=== PATIENT | female | born 1975 | race Hispanic/Latino ===

== ENCOUNTER 2017-04-29 16:21 | Emergency (ER) | payer MEDICARE, MEDICAID ==
[2017-04-29] MEDS ORDERED: HYDROcodone/Acetaminophen 5/325 mg Tablet ONE (17:44)
--- NOTE | 2017-04-29 19:49 | RAD ---
LEFT WRIST FOUR VIEWS: 04/29/17 HISTORY: Left wrist injury. FINDINGS: Scaphoid is somewhat malrotated. Scaphoid view shows the waist to be intact. On the lateral view, a t hin linear ossific density posterior to the mid carpus most likely represents an avulsion injury from the posterior aspect of the triquetral. IMPRESSION: Triquetral posterior avulsion injury. Please consider immobilization and orthopedic followup. POS: SHELLI
== END 2017-04-29 17:55 | disposition home or self-care (01) ==
LOC: ERS 16:21
DX: S62.112A Displaced fracture of triquetrum [cuneiform] bone, left wrist, initial encounter for closed fracture (principal); G80.9 Cerebral palsy, unspecified; I10 Essential (primary) hypertension; F41.9 Anxiety disorder, unspecified; F17.200 Nicotine dependence, unspecified, uncomplicated; Z79.899 Other long term (current) drug therapy; X58.XXXA Exposure to other specified factors, initial encounter

== ENCOUNTER 2019-11-17 06:13 | Emergency (ER) | payer MEDICARE, MEDICAID ==
[2019-11-17] MEDS ORDERED: Ketorolac Tromethamine 30 MG/ML VIAL ONE (06:23)
[2019-11-17] MEDS ORDERED: Ondansetron PF 4 MG/2 ML Vial ONE (06:24)
[2019-11-17 06:45] LABS: #Eosinphils 0.1 thou/uL (0.0-0.7); #Lymphocytes 2.5 thou/uL (1.20-3.40); #Monocytes 0.5 thou/uL (0.11-0.59); #Neutrophils 4.1 thou/uL (1.40-6.50); %Basophils 0.2 % (0.0-1.0); %Eosinophils 1.3 % (0.0-10.0); %Lymphocytes 34.5 % (21.0-51.0); %Monocytes 6.6 % (0.0-10.0); %Neutrophils 57.5 % (42.0-75.0); Hemoglobin 11.9 g/dL (12.0-16.0); Mean Corpuscular HGB CONC 32.4 g/dL (32.0-36.0); Mean Corpuscular Hemoglobin 26.2 pg (27.0-31.0); Mean Corpuscular Volume 80.9 fL (78.0-98.0); Mean Platelet Volume 7.9 fL (7.4-10.4); Platelet Count 217 thou/uL (130-400); RBC Distribution Width 13.2 % (11.5-14.5); Red Blood Cell (RBC) Count 4.52 mill/uL (4.20-5.40); White Blood Cell (WBC) Count 7.2 thou/uL (4.8-10.8)
[2019-11-17 07:00] LABS: ALT (SGPT) 26 U/L (8-55); AST (SGOT) 21 U/L (5-34); Albumin 3.3 g/dL (3.5-5.0); Alkaline Phosphatase 102 U/L (40-110); Anion Gap 9 mmol/L (10-20); BUN (Urea Nitrogen) 11 mg/dL (7.0-18.7); Bilirubin, Total 0.5 mg/dL (0.2-1.2); Calc. Creatinine Clearance 0 mL/min (70-130); Calcium 7.8 mg/dL (7.8-10.44); Carbon Dioxide 22 mmol/L (22-29); Chloride 109 mmol/L (98-107); Estimated GFR-MDRD Greater than 90; Globulin 2.5 g/dL (2.4-3.5); Glucose 101 mg/dL (70-105); Lipase 9 U/L (8-78); Potassium 3.2 mmol/L (3.5-5.1); Protein, Total 5.8 g/dL (6.0-8.3); Sodium 137 mmol/L (136-145)
[2019-11-17 07:17] LABS: Bilirubin Negative (Negative); Blood, Urine Trace (Negative); Clarity Turbid (Clear); Glucose, Urine (Dipstick) Normal (Negative); Ketone, Urine Negative (Negative); Leukocyte 250 Leu/uL (Negative); Nitrite Negative (Negative); Protein, Urine (Dipstick) 20 mg/dL (Neg-Trace); Specific Gravity, Urine 1.044 (1.002-1.036); Urobilinogen Normal mg/dL (Less than 2)
[2019-11-17 07:18] LABS: Bacteria/HPF 1+ HPF (None Seen)
--- NOTE | 2019-11-17 07:50 | CT ---
Ct abdomen and pelvis with contrast: COMPARISON: 08/09/2016. HISTORY: Epigastric abdominal pain. TECHNIQUE: Multiple contiguous axial images were obtained in a CT of the abdomen and pelvis with contrast. Sagi ttal and coronal reformats were performed. FINDINGS: The patient is status post cholecystectomy. The liver, kidneys, adrenal glands, spleen, and pancreas are unremarkable. No free air, free fluid, or stranding changes are seen in the abdomen or pelvis. The reproductive organs are unremarkable. The large and small bowel are unremarkable. The appendix is normal. No abdominal or pelvis lymphadenopathy are seen. Degenerative changes are seen in the spine. There is a small stable fat-containing umbilical hernia. The visualized inferior thorax was unremarkable. There is a small hiatal hernia. IMPRESSION: No evidence of acute intraabdominal/pelvic abnormality. POS: EAA
[2019-11-17] MEDS ORDERED: Iopamidol-370 76% 500 ML 1 ML ONE (13:15)
== END 2019-11-17 08:38 | disposition home or self-care (01) ==
LOC: ERS 06:13
DX: R10.13 Epigastric pain (principal); R19.7 Diarrhea, unspecified; I10 Essential (primary) hypertension; F41.9 Anxiety disorder, unspecified; Z79.899 Other long term (current) drug therapy
CPT/HCPCS: 36415; 51701; 74177; 80053; 81003; 81015; 83690; 85025; 96361; 96372; 96374; 96375; J0500; J1885; J2405; Q9967

== ENCOUNTER 2020-02-11 02:37 | Emergency (ER) | payer MEDICARE, MEDICAID ==
[2020-02-11] MEDS ORDERED: Promethazine HCl 25 MG/ML VIAL ONE (03:06)
[2020-02-11 03:09] LABS: #Basophils 0.1 thou/uL (0.0-0.2); #Eosinphils 0.2 thou/uL (0.0-0.7); #Lymphocytes 3.3 thou/uL (1.20-3.40); #Monocytes 0.7 thou/uL (0.11-0.59); #Neutrophils 6.6 thou/uL (1.40-6.50); %Basophils 0.6 % (0.0-1.0); %Eosinophils 1.8 % (0.0-10.0); %Lymphocytes 30.3 % (21.0-51.0); %Monocytes 6.4 % (0.0-10.0); %Neutrophils 60.9 % (42.0-75.0); Hemoglobin 12.2 g/dL (12.0-16.0); Mean Corpuscular HGB CONC 32.3 g/dL (32.0-36.0); Mean Corpuscular Hemoglobin 25.2 pg (27.0-31.0); Mean Corpuscular Volume 77.9 fL (78.0-98.0); Mean Platelet Volume 8.1 fL (7.4-10.4); Platelet Count 261 thou/uL (130-400); RBC Distribution Width 13.8 % (11.5-14.5); Red Blood Cell (RBC) Count 4.84 mill/uL (4.20-5.40); White Blood Cell (WBC) Count 10.8 thou/uL (4.8-10.8)
[2020-02-11 03:15] LABS: BHCG - Serum Negative (NEGATIVE); Pregs Control Background? CLEAR/WHITE (CLR/WHITE); Pregs Control Bar Appear? YES (CONTROL BAR)
[2020-02-11 03:30] LABS: ALT (SGPT) 16 U/L (8-55); AST (SGOT) 12 U/L (5-34); Albumin 3.6 g/dL (3.5-5.0); Alkaline Phosphatase 96 U/L (40-110); Anion Gap 14 mmol/L (10-20); BUN (Urea Nitrogen) 13 mg/dL (7.0-18.7); Bilirubin, Total 0.3 mg/dL (0.2-1.2); Calc. Creatinine Clearance 0 mL/min (70-130); Calcium 8.3 mg/dL (7.8-10.44); Carbon Dioxide 21 mmol/L (22-29); Chloride 105 mmol/L (98-107); Globulin 3.3 g/dL (2.4-3.5); Glucose 109 mg/dL (70-105); Lipase 21 U/L (8-78); Potassium 3.6 mmol/L (3.5-5.1); Protein, Total 6.9 g/dL (6.0-8.3); Sodium 136 mmol/L (136-145)
[2020-02-11 04:49] LABS: Bilirubin Negative (Negative); Blood, Urine Negative (Negative); Clarity Clear (Clear); Glucose, Urine (Dipstick) Normal (Negative); Ketone, Urine Negative (Negative); Leukocyte Negative Leu/uL (Negative); Nitrite Negative (Negative); Protein, Urine (Dipstick) Negative (Neg-Trace); Specific Gravity, Urine 1.034 (1.002-1.036); Urobilinogen Normal mg/dL (Less than 2)
[2020-02-11] MEDS ORDERED: Acetaminophen 500 MG TAB ONE (05:23)
--- NOTE | 2020-02-11 08:48 | CT ---
PRELIMINARY REPORT/[facility]/EMERGENCY AFTER HOURS PROCEDURE EXAM: CT Abdomen and Pelvis with Intravenous Contrast CLINICAL HISTORY: ABD PAIN AND VOMITING ONSET TONIGHT 8 MG ODST ZOFRAN, HELPED WITH NAUSEA GREEN BILE. HAD THIS BEFORE, TOLD WAS GERD TECHNIQUE: Axial computed tomography images of the abdomen and pelvis with intravenous contrast. CONTRAST: With; ISOVUE 370,100mL COMPARISON: N 11/17/2019 one provided. FINDINGS: LUNG BASES: No basilar airspace consolidation or pleural effusion. LIVER: Unremarkable. GALLBLADDER AND BILE DUCTS: The gallbladder is absent. No dilatation of the biliary ductal system. PANCREAS: Unremarkable. SPLEEN: Unremarkable. ADRENAL GLANDS: Unremarkable. KIDNEYS, URETERS, AND BLADDER: Unremarkable. No hydronephrosis or nephrolithiasis. No ureteral or bladder calculi. STOMACH AND BOWEL: No obstruction. No wall thickening. No CT evidence of colitis or acute diverticulitis. There is a sm all hiatal hernia. APPENDIX: No CT evidence for appendicitis. The appendix is normal. PERITONEUM: No free fluid. No free air. LYMPH NODES: No lymphadenopathy. REPRODUCTIVE: Unremarkable as visualized. VASCULATURE: No aortic aneurysm. BONES: No fracture or suspicious osseous abnormality. ABDOMINAL WALL AND SOFT TISSUES: Unremarkable. IMPRESSION: No acute intra-abdominal or pelvic abnormality. ELECTRONICALLY SIGNED BY: Lesley Parkinson DO Feb 11, 2020 4:31:24 AM DENTAL FINANCIAL COORDINATOR This report is intended for review by the ordering physician only, in accordance of law. If you recei ve this report in error, please call [facility] at [phone]. FINAL REPORT EMERGENCY AFTER HOURS CT ABDOMEN AND PELVIS: I agree with the preliminary report provided by [facility]. No definite acute CT abnormality to explain the patient's abdominal pain with vomiting Transcribed Date/Time: 02/11/2020 8:56 AM
[2020-02-11] MEDS ORDERED: Iopamidol 370 76% 100 ML VIAL ONE (09:31)
== END 2020-02-11 06:01 | disposition home or self-care (01) ==
LOC: ERS 02:37
DX: R10.9 Unspecified abdominal pain (principal); R11.2 Nausea with vomiting, unspecified; Z79.899 Other long term (current) drug therapy; K21.9 Gastro-esophageal reflux disease without esophagitis; I10 Essential (primary) hypertension; F17.200 Nicotine dependence, unspecified, uncomplicated
CPT/HCPCS: 51701; 74177; 80053; 81003; 83690; 84703; 85025; 93005; 96365; J2550; Q9967

== ENCOUNTER 2020-05-07 13:47 | Emergency (ER) | payer MEDICARE, MEDICAID ==
[2020-05-07] MEDS ORDERED: Diazepam 5 MG TAB ONE (14:08)
[2020-05-07] MEDS ORDERED: Ketorolac Tromethamine 30 MG/ML VIAL ONE (14:08)
[2020-05-07 14:22] LABS: #Eosinphils 0.1 thou/uL (0.0-0.7); #Lymphocytes 1.9 thou/uL (1.20-3.40); #Monocytes 0.4 thou/uL (0.11-0.59); #Neutrophils 3.8 thou/uL (1.40-6.50); %Basophils 0.1 % (0.0-1.0); %Eosinophils 1.7 % (0.0-10.0); %Monocytes 7.1 % (0.0-10.0); %Neutrophils 61.1 % (42.0-75.0); Hemoglobin 11.8 g/dL (12.0-16.0); Mean Corpuscular HGB CONC 31.9 g/dL (32.0-36.0); Mean Corpuscular Hemoglobin 25.1 pg (27.0-31.0); Mean Corpuscular Volume 78.6 fL (78.0-98.0); Mean Platelet Volume 8.1 fL (7.4-10.4); Platelet Count 257 thou/uL (130-400); RBC Distribution Width 13.8 % (11.5-14.5); White Blood Cell (WBC) Count 6.2 thou/uL (4.8-10.8)
[2020-05-07 14:43] LABS: ALT (SGPT) 17 U/L (8-55); AST (SGOT) 14 U/L (5-34); Albumin 3.6 g/dL (3.5-5.0); Alkaline Phosphatase 94 U/L (40-110); Anion Gap 12 mmol/L (10-20); BUN (Urea Nitrogen) 10 mg/dL (7.0-18.7); Bilirubin, Total 0.4 mg/dL (0.2-1.2); Calc. Creatinine Clearance 0 mL/min (70-130); Calcium 8.2 mg/dL (7.8-10.44); Carbon Dioxide 21 mmol/L (22-29); Chloride 107 mmol/L (98-107); Globulin 3.2 g/dL (2.4-3.5); Glucose 99 mg/dL (70-105); Potassium 3.7 mmol/L (3.5-5.1); Protein, Total 6.8 g/dL (6.0-8.3); Sodium 136 mmol/L (136-145)
[2020-05-07 15:17] LABS: Bilirubin Negative (Negative); Blood, Urine Negative (Negative); Clarity Clear (Clear); Glucose, Urine (Dipstick) Normal (Negative); Ketone, Urine Negative (Negative); Leukocyte Negative Leu/uL (Negative); Nitrite Negative (Negative); Protein, Urine (Dipstick) Negative (Neg-Trace); Specific Gravity, Urine 1.013 (1.002-1.036); Urobilinogen Normal mg/dL (Less than 2)
[2020-05-07 15:20] LABS: Pregnancy Test - Urine (BHCG) Negative (Negative); Pregu Control Background? CLEAR/WHITE (CLR/WHITE); Pregu Control Bar Appear? YES (CONTROL BAR); Specific Gravity 1.013 (1.002-1.036)
== END 2020-05-07 17:01 | disposition home or self-care (01) ==
LOC: ERS 13:47
DX: M54.5 Low back pain (principal); I10 Essential (primary) hypertension; K21.9 Gastro-esophageal reflux disease without esophagitis; F17.200 Nicotine dependence, unspecified, uncomplicated; Z79.899 Other long term (current) drug therapy
CPT/HCPCS: 36415; 80053; 81003; 81025; 85025; 96374; J1885

== ENCOUNTER 2020-08-13 00:11 | Inpatient (IN) | payer MEDICARE, MEDICAID ==
[2020-08-13 00:41] LABS: #Eosinphils 0.1 thou/uL (0.0-0.7); #Lymphocytes 1.5 thou/uL (1.20-3.40); #Monocytes 0.5 thou/uL (0.11-0.59); #Neutrophils 2.1 thou/uL (1.40-6.50); %Basophils 0.1 % (0.0-1.0); %Monocytes 12.7 % (0.0-10.0); %Neutrophils 48.2 % (42.0-75.0); Hemoglobin 12.5 g/dL (12.0-16.0); Mean Corpuscular HGB CONC 32.9 g/dL (32.0-36.0); Mean Corpuscular Hemoglobin 25.2 pg (27.0-31.0); Mean Corpuscular Volume 76.7 fL (78.0-98.0); Mean Platelet Volume 9.1 fL (7.4-10.4); Platelet Count 171 thou/uL (130-400); RBC Distribution Width 14.2 % (11.5-14.5); Red Blood Cell (RBC) Count 4.96 mill/uL (4.20-5.40); White Blood Cell (WBC) Count 4.3 thou/uL (4.8-10.8)
[2020-08-13 01:04] LABS: ALT (SGPT) 46 U/L (8-55); AST (SGOT) 33 U/L (5-34); Albumin 3.8 g/dL (3.5-5.0); Alkaline Phosphatase 117 U/L (40-110); Anion Gap 13 mmol/L (10-20); BUN (Urea Nitrogen) 10 mg/dL (7.0-18.7); Bilirubin, Total 0.2 mg/dL (0.2-1.2); Calc. Creatinine Clearance 0 mL/min (70-130); Calcium 8.3 mg/dL (7.8-10.44); Carbon Dioxide 20 mmol/L (22-29); Chloride 105 mmol/L (98-107); Globulin 3.1 g/dL (2.4-3.5); Glucose 114 mg/dL (70-105); Potassium 3.8 mmol/L (3.5-5.1); Protein, Total 6.9 g/dL (6.0-8.3); Sodium 134 mmol/L (136-145)
[2020-08-13] MEDS ORDERED: Ketorolac Tromethamine 30 MG/ML VIAL ONE (01:58)
[2020-08-13] MEDS ORDERED: Sodium Chloride 0.9% 100 ML ONE (04:05)
[2020-08-13] MEDS ORDERED: cefTRIAXone\\ROCEPHIN 1 GM VIAL ONE (04:05)
[2020-08-13] MEDS ORDERED: Azithromycin 500 MG VIAL ONE (05:00)
[2020-08-13 06:21] LABS: SARS-CoV-2 NAA Rapid Test Not Detected (NotDetected)
[2020-08-13 06:40] VITALS: BMI 47.9
[2020-08-13] MEDS ORDERED: Acetaminophen 325 MG TAB PO PRN (07:49)
[2020-08-13] MEDS ORDERED: Ondansetron ODT 4 MG TAB PO PRN (07:49)
[2020-08-13] MEDS: Guaifenesin DM 100-10/5 ML UDCUP PO PRN ×3 (08:24→20:10)
[2020-08-13] MEDS: Benzonatate 100 MG CAP PO PRN ×3 (08:24→20:09)
[2020-08-13] MEDS: Enoxaparin Sodium 40 MG/0.4 ML SYRINGE SC SCH (08:24)
[2020-08-13] MEDS ORDERED: LISINOPRIL 30 MG PO SCH (09:00)
[2020-08-13] MEDS: Oxybutynin 5 MG TAB PO SCH (09:14)
[2020-08-13] MEDS: Lisinopril 10 MG TAB PO SCH (09:15)
[2020-08-13] MEDS: guaiFENesin ER 600 MG TAB PO SCH ×2 (09:15→20:09)
[2020-08-13] MEDS: FLUoxetine HCl 20 MG CAP PO SCH (09:15)
[2020-08-13] MEDS ORDERED: Iopamidol 370 76% 100 ML VIAL ONE (09:24)
[2020-08-13] MEDS: Ketorolac Tromethamine 10 MG TAB PO PRN (15:17)
[2020-08-13] MEDS ORDERED: Melatonin 3 MG TAB PO SCH (21:00)
[2020-08-13] MEDS ORDERED: Non-Formulary Item 1 EACH (Melatonin [Melatonin] 10 MG Tablet) PO SCH (21:00)
[2020-08-14] MEDS: Guaifenesin DM 100-10/5 ML UDCUP PO PRN (00:25)
[2020-08-14] MEDS ORDERED: cefTRIAXone\\ROCEPHIN 1 GM in Sodium Chloride 0.9% 100 ML IVPB SCH (05:00)
[2020-08-14] MEDS ORDERED: Azithromycin 500 MG in Sodium Chloride 0.9% 250 ML 250 ML IVPB SCH (06:00)
[2020-08-14 07:33] LABS: #Eosinphils 0.2 thou/uL (0.0-0.7); #Lymphocytes 1.4 thou/uL (1.20-3.40); #Monocytes 0.4 thou/uL (0.11-0.59); #Neutrophils 1.6 thou/uL (1.40-6.50); %Basophils 0.2 % (0.0-1.0); %Eosinophils 5.1 % (0.0-10.0); %Lymphocytes 39.4 % (21.0-51.0); %Monocytes 10.9 % (0.0-10.0); %Neutrophils 44.5 % (42.0-75.0); Hemoglobin 11.1 g/dL (12.0-16.0); Mean Corpuscular HGB CONC 32.6 g/dL (32.0-36.0); Mean Corpuscular Hemoglobin 25.4 pg (27.0-31.0); Mean Corpuscular Volume 77.9 fL (78.0-98.0); Mean Platelet Volume 9.3 fL (7.4-10.4); Platelet Count 160 thou/uL (130-400); RBC Distribution Width 14.1 % (11.5-14.5); Red Blood Cell (RBC) Count 4.39 mill/uL (4.20-5.40); White Blood Cell (WBC) Count 3.5 thou/uL (4.8-10.8)
[2020-08-14] MEDS: Benzonatate 100 MG CAP PO PRN (07:38)
[2020-08-14] MEDS: Lisinopril 10 MG TAB PO SCH (07:38)
[2020-08-14] MEDS: FLUoxetine HCl 20 MG CAP PO SCH (07:38)
[2020-08-14] MEDS: Enoxaparin Sodium 40 MG/0.4 ML SYRINGE SC SCH (07:39)
[2020-08-14] MEDS: guaiFENesin ER 600 MG TAB PO SCH (07:39)
[2020-08-14] MEDS: Ketorolac Tromethamine 10 MG TAB PO PRN (07:39)
[2020-08-14] MEDS: Oxybutynin 5 MG TAB PO SCH (07:39)
[2020-08-14 07:45] VITALS: BP 114/75
[2020-08-14 07:52] LABS: Anion Gap 13 mmol/L (10-20); BUN (Urea Nitrogen) 13 mg/dL (7.0-18.7); Calc. Creatinine Clearance 157 mL/min (70-130); Carbon Dioxide 17 mmol/L (22-29); Chloride 106 mmol/L (98-107); Glucose 134 mg/dL (70-105); Potassium 3.4 mmol/L (3.5-5.1); Sodium 133 mmol/L (136-145)
[2020-08-14] MEDS ORDERED: Methocarbamol 500 MG TAB PO PRN (09:25)
[2020-08-14 10:48] VITALS: TEMP 98.8
== END 2020-08-14 15:00 | disposition home or self-care (01) | DRG 194 ==
LOC: ERS 00:11 → T4-A 04:58 → OBSVTOIN 08:42
PROVIDERS: ADMIT Internal Medicine; ATTEND Nurse Practitioner Family
DX: J18.9 Pneumonia, unspecified organism (principal); F32.0 Major depressive disorder, single episode, mild; Z20.822 Contact with and (suspected) exposure to COVID-19; G80.9 Cerebral palsy, unspecified; I10 Essential (primary) hypertension; K21.9 Gastro-esophageal reflux disease without esophagitis; N32.81 Overactive bladder; F41.9 Anxiety disorder, unspecified; Z87.891 Personal history of nicotine dependence; Z88.5 Allergy status to narcotic agent; Z79.899 Other long term (current) drug therapy; Z90.49 Acquired absence of other specified parts of digestive tract
CPT/HCPCS: 36415; 71045; 71275; 80048; 80053; 83880; 84484; 85025; 85379; 87040; 87149; 93005; 96365; 96367; 96372; 96375; G0378; J0456; J0696; J1650; J1885; J3490; J7050; Q9967; U0002; U0005

== ENCOUNTER 2020-10-03 09:26 | Emergency (ER) | payer MEDICARE, MEDICAID ==
[2020-10-03] MEDS ORDERED: Iopamidol-370 76% 500 ML 1 ML ONE (09:52)
[2020-10-03 10:32] LABS: #Eosinphils 0.1 thou/uL (0.0-0.7); #Lymphocytes 1.2 thou/uL (1.20-3.40); #Monocytes 0.6 thou/uL (0.11-0.59); #Neutrophils 3.8 thou/uL (1.40-6.50); %Lymphocytes 21.1 % (21.0-51.0); %Monocytes 9.9 % (0.0-10.0); Hemoglobin 11.2 g/dL (12.0-16.0); Mean Corpuscular HGB CONC 33.3 g/dL (32.0-36.0); Mean Corpuscular Hemoglobin 25.4 pg (27.0-31.0); Mean Corpuscular Volume 76.3 fL (78.0-98.0); Mean Platelet Volume 8.3 fL (7.4-10.4); Platelet Count 230 thou/uL (130-400); RBC Distribution Width 14.2 % (11.5-14.5); Red Blood Cell (RBC) Count 4.41 mill/uL (4.20-5.40); White Blood Cell (WBC) Count 5.7 thou/uL (4.8-10.8)
[2020-10-03 10:53] LABS: ALT (SGPT) 25 U/L (8-55); AST (SGOT) 23 U/L (5-34); Albumin 3.3 g/dL (3.5-5.0); Alkaline Phosphatase 107 U/L (40-110); Anion Gap 9 mmol/L (10-20); BUN (Urea Nitrogen) 9 mg/dL (7.0-18.7); Bilirubin, Total 0.4 mg/dL (0.2-1.2); Calc. Creatinine Clearance 0 mL/min (70-130); Calcium 8.4 mg/dL (7.8-10.44); Carbon Dioxide 24 mmol/L (22-29); Chloride 108 mmol/L (98-107); Globulin 2.9 g/dL (2.4-3.5); Glucose 104 mg/dL (70-105); Potassium 3.6 mmol/L (3.5-5.1); Protein, Total 6.2 g/dL (6.0-8.3); Sodium 137 mmol/L (136-145)
[2020-10-03 16:59] LABS: SARS-CoV-2 PCR by NAA Not Detected (NotDetected)
== END 2020-10-03 13:44 | disposition home or self-care (01) ==
LOC: ERS 09:26
DX: R06.00 Dyspnea, unspecified (principal); R05 Cough; Z20.822 Contact with and (suspected) exposure to COVID-19; I10 Essential (primary) hypertension; K21.9 Gastro-esophageal reflux disease without esophagitis; G80.9 Cerebral palsy, unspecified; F17.210 Nicotine dependence, cigarettes, uncomplicated
CPT/HCPCS: 71045; 71275; 80053; 84484; 85025; 85379; 93005; 99285; U0003; U0005; 36415; Q9967

== ENCOUNTER 2021-08-06 06:34 | Emergency (ER) | payer MEDICARE, OTHER ==
[2021-08-06] MEDS ORDERED: Ketorolac Tromethamine 30 MG/ML VIAL ONE (08:14)
[2021-08-06] MEDS ORDERED: Cyclobenzaprine 10 MG TAB ONE (08:14)
[2021-08-06] MEDS ORDERED: traMADol HCl 50 MG TAB ONE (10:02)
== END 2021-08-06 13:21 | disposition home or self-care (01) ==
LOC: ERS 06:34
DX: M54.50 Low back pain, unspecified (principal); I10 Essential (primary) hypertension; K21.9 Gastro-esophageal reflux disease without esophagitis; F17.210 Nicotine dependence, cigarettes, uncomplicated; G80.9 Cerebral palsy, unspecified
CPT/HCPCS: 96372; 99283; J1885

== ENCOUNTER 2021-08-28 07:41 | Emergency (ER) | payer MEDICARE, OTHER ==
[2021-08-28] MEDS ORDERED: Diazepam 10 MG/2 ML SYRINGE ONE (08:18)
[2021-08-28] MEDS ORDERED: Ketorolac Tromethamine 30 MG/ML VIAL ONE (08:18)
== END 2021-08-28 11:45 | disposition home or self-care (01) ==
LOC: ERS 07:41
DX: M54.50 Low back pain, unspecified (principal); I10 Essential (primary) hypertension; K21.9 Gastro-esophageal reflux disease without esophagitis; F17.210 Nicotine dependence, cigarettes, uncomplicated
CPT/HCPCS: 96372; 99283; J1885; J3360

== ENCOUNTER 2021-11-07 01:35 | Emergency (ER) | payer OTHER ==
[2021-11-07] MEDS ORDERED: Mag-Al 1200 mg/1200 mg/30 ML UDCUP ONE (02:01)
[2021-11-07 02:24] LABS: Hemoglobin 10.8 g/dL (12.0-16.0); Mean Corpuscular HGB CONC 32.5 g/dL (32.0-36.0); Mean Corpuscular Hemoglobin 23.9 pg (27.0-31.0); Mean Corpuscular Volume 73.5 fL (78.0-98.0); Mean Platelet Volume 8.8 fL (7.4-10.4); Platelet Count 260 thou/uL (130-400); RBC Distribution Width 15.2 % (11.5-14.5); Red Blood Cell (RBC) Count 4.51 mill/uL (4.20-5.40); White Blood Cell (WBC) Count 9.5 thou/uL (4.8-10.8)
[2021-11-07 02:32] LABS: ALT (SGPT) 22 U/L (8-55); AST (SGOT) 22 U/L (5-34); Albumin 3.7 g/dL (3.5-5.0); Alkaline Phosphatase 114 U/L (40-110); Anion Gap 10 mmol/L (10-20); BUN (Urea Nitrogen) 11 mg/dL (7.0-18.7); Bilirubin, Total 0.3 mg/dL (0.2-1.2); Calc. Creatinine Clearance 0 mL/min (70-130); Calcium 8.5 mg/dL (7.8-10.44); Carbon Dioxide 21 mmol/L (22-29); Chloride 108 mmol/L (98-107); Estimated GFR 110; Globulin 2.8 g/dL (2.4-3.5); Glucose 121 mg/dL (70-105); Lipase 17 U/L (8-78); Potassium 3.5 mmol/L (3.5-5.1); Protein, Total 6.5 g/dL (6.0-8.3); Sodium 135 mmol/L (136-145)
[2021-11-07 02:45] LABS: #Eosinphils 0.2 thou/uL (0.0-0.7); #Lymphocytes 2.8 thou/uL (1.20-3.40); #Monocytes 0.7 thou/uL (0.11-0.59); #Neutrophils 5.9 thou/uL (1.40-6.50); %Basophils 0.2 % (0.0-1.0); %Eosinophils 1.7 % (0.0-10.0); %Lymphocytes 29.2 % (21.0-51.0); %Monocytes 7.5 % (0.0-10.0); %Neutrophils 61.4 % (42.0-75.0); Anisocytosis SLIGHT = 6-15 cells (100X) (0-5/hpf); Elliptocytes SLIGHT = 2-5 cells (100X) (0-1/hpf); MDiff Complete? YES
== END 2021-11-07 06:48 | disposition home or self-care (01) ==
LOC: ERS 01:35
DX: R07.2 Precordial pain (principal); I10 Essential (primary) hypertension; F17.210 Nicotine dependence, cigarettes, uncomplicated
CPT/HCPCS: 36415; 71045; 80053; 83690; 84484; 85025; 93005

== ENCOUNTER 2022-01-02 17:40 | Emergency (ER) | payer OTHER ==
[2022-01-02] MEDS ORDERED: Acetaminophen 500 MG TAB ONE (18:49)
[2022-01-02] MEDS ORDERED: Diazepam 5 MG TAB ONE (18:49)
[2022-01-02] MEDS ORDERED: Ketorolac Tromethamine 30 MG/ML VIAL ONE (18:49)
== END 2022-01-02 21:42 | disposition home or self-care (01) ==
LOC: ERS 17:40
DX: M62.830 Muscle spasm of back (principal); K21.9 Gastro-esophageal reflux disease without esophagitis; I10 Essential (primary) hypertension; F17.210 Nicotine dependence, cigarettes, uncomplicated
CPT/HCPCS: 71045; 72040; 96372; J1885

== ENCOUNTER 2024-03-11 15:29 | Inpatient (IN) | payer OTHER ==
[2024-03-11 15:58] LABS: Actual Bicarbonate (HCO3v) 23.7 mEq/L (22-28); Analyzer IN Cardio ER; Chloride (VBG) 103 mmol/L (98-106); Hematocrit-VBG 33 % (36.0-47.0); Hemoglobin (Hb) 11.1 g/dL (11.7-16.0); Potassium (VBG) 4.48 mmol/L (3.70-5.30); Sodium 137 mmol/L (133-146); pH (venous) 7.449 (7.32-7.43)
[2024-03-11] MEDS ORDERED: Dicyclomine 20 MG TAB ONE (16:02)
[2024-03-11] MEDS ORDERED: Famotidine/PF 20 mg/2ml Vial ONE (16:02)
[2024-03-11] MEDS ORDERED: Ondansetron PF 4 MG/2 ML Vial ONE ×2 (16:02→18:20)
[2024-03-11 16:03] LABS: #Basophils Less than 0.03 10x3/uL (0.0-0.2); %Basophils 0.1 % (0.0-1.0); %Eosinophils 1.1 % (0.0-10.0); %Lymphocytes 10.8 % (21.0-51.0); %Neutrophils 83.8 % (42.0-75.0); Hematocrit 33.3 % (36.0-47.0); Hemoglobin 9.7 g/dL (12.0-16.0); Mean Corpuscular HGB CONC 29.1 g/dL (32.0-36.0); Mean Corpuscular Hemoglobin 19.8 pg (27.0-31.0); Mean Corpuscular Volume 67.8 fL (78.0-98.0); Mean Platelet Volume 9.8 fL (7.4-10.4); Platelet Count 333 10x3/uL (130-400); RBC Distribution Width 17.4 % (11.5-14.5); Red Blood Cell (RBC) Count 4.91 mill/uL (4.20-5.40)
[2024-03-11 16:25] LABS: ALT (SGPT) 19 U/L (Less than 34); AST (SGOT) 50 U/L (11-34); Albumin 3.5 g/dL (3.1-4.5); Alkaline Phosphatase 102 U/L (40-110); Anion Gap 14 mmol/L (10-20); BUN (Urea Nitrogen) 10 mg/dL (7.0-18.7); Bilirubin, Total 0.4 mg/dL (0.3-1.2); Calc. Creatinine Clearance 0 mL/min (70-130); Calcium 8.5 mg/dL (7.8-10.44); Carbon Dioxide 21 mmol/L (22-29); Chloride 105 mmol/L (98-107); Estimated GFR 112; Globulin 4.6 g/dL (2.4-3.5); Glucose 102 mg/dL (70-105); Magnesium 2.2 mg/dL (1.6-2.6); Potassium 4.9 mmol/L (3.5-5.1); Protein, Total 8.1 g/dL (6.0-8.3); Sodium 135 mmol/L (136-145)
[2024-03-11 16:29] LABS: Anisocytosis SLIGHT = 6-15 cells HPF (0-5); Elliptocytes SLIGHT = 2-5 cells HPF (0-1); Microcytosis SLIGHT = 6-15 cells HPF (0-5); Platelet Adequacy Comment Platelets Normal; Polychromasia SLIGHT = 2-3 cells HPF (0-2)
[2024-03-11 17:08] LABS: Bacteria/HPF None Seen HPF (None Seen); Bilirubin Negative (Negative); Blood, Urine Negative (Negative); CAUTI Indications for Culture Pelvic or flank pain; Clarity Clear (Clear); Glucose, Urine (Dipstick) Normal (Negative); Ketone, Urine Negative (Negative); Leukocyte Negative Leu/uL (Negative); Nitrite Negative (Negative); Protein, Urine (Dipstick) 20 mg/dL (Neg-Trace); RBC/HPF 0-3 HPF (0-3); Specific Gravity, Urine 1.026 (1.002-1.036); Squamous Epithelial 0-3 HPF (0-3); Urobilinogen Normal mg/dL (Less than 2); WBC/HPF 0-3 HPF (0-3)
[2024-03-11 17:09] LABS: Urine Culture Reflex No No
[2024-03-11] MEDS ORDERED: Promethazine HCl 25 MG/ML VIAL ONE (17:16)
[2024-03-11] MEDS ORDERED: Cyclobenzaprine 10 MG TAB ONE (18:20)
[2024-03-11] MEDS ORDERED: Ondansetron PF 4 MG/2 ML Vial IVP PRN (21:36)
[2024-03-11 22:36] VITALS: BMI 48.8
[2024-03-11] MEDS: Baclofen 10 MG TAB PO SCH (23:34)
[2024-03-11] MEDS: Lactated Ringer's 1,000 ML IV SCH (23:34)
[2024-03-12 01:21] LABS: Chloride 112 mmol/L (98-107); Sodium 135 mmol/L (136-145)
[2024-03-12 01:51] LABS: Carbon Dioxide 13 mmol/L (22-29)
[2024-03-12 01:59] LABS: Anion Gap 14 mmol/L (10-20)
[2024-03-12] MEDS: Folic Acid 1 MG TAB PO SCH (03:58)
[2024-03-12] MEDS: Thiamine HCl 200 MG/2 ML VIAL SLOW IVP SCH (03:58)
[2024-03-12] MEDS: Dextrose 5%-Lactated Ringers 1,000 ML IV SCH (04:11)
[2024-03-12] MEDS: Dicyclomine 20 MG TAB PO PRN (04:23)
[2024-03-12 05:46] LABS: #Basophils Less than 0.03 10x3/uL (0.0-0.2); %Basophils 0.2 % (0.0-1.0); %Eosinophils 0.9 % (0.0-10.0); %Lymphocytes 24.7 % (21.0-51.0); %Monocytes 7.9 % (0.0-10.0); %Neutrophils 66.1 % (42.0-75.0); Hematocrit 27.9 % (36.0-47.0); Hemoglobin 8.2 g/dL (12.0-16.0); Mean Corpuscular HGB CONC 29.4 g/dL (32.0-36.0); Mean Corpuscular Volume 68.2 fL (78.0-98.0); Mean Platelet Volume 9.4 fL (7.4-10.4); Platelet Count 259 10x3/uL (130-400); RBC Distribution Width 17.3 % (11.5-14.5); Red Blood Cell (RBC) Count 4.09 mill/uL (4.20-5.40)
[2024-03-12 06:13] LABS: Hypochromia SLIGHT = 6-15 cells HPF (0-5); Microcytosis SLIGHT = 6-15 cells HPF (0-5); Platelet Adequacy Comment Platelets Normal; Polychromasia SLIGHT = 2-3 cells HPF (0-2)
[2024-03-12] MEDS: Acetaminophen 325 MG TAB PO PRN (06:17)
[2024-03-12 06:58] LABS: Lactic Acid 1.43 mmol/L (0.50-2.20)
[2024-03-12 07:21] LABS: Anion Gap 7 mmol/L (10-20); BUN (Urea Nitrogen) 6 mg/dL (7.0-18.7); Calc. Creatinine Clearance 175 mL/min (70-130); Calcium 7.8 mg/dL (7.8-10.44); Carbon Dioxide 21 mmol/L (22-29); Chloride 109 mmol/L (98-107); Estimated GFR 114; Glucose 112 mg/dL (70-105); Iron 26 ug/dL (50-170); Iron Binding Capacity, Total 338 mcg/dL (265-497); Potassium 3.4 mmol/L (3.5-5.1); Sodium 134 mmol/L (136-145)
[2024-03-12 07:25] LABS: Campy jejuni + coli by PCR Negative (Negative); STEC Shiga Toxin 1+2 Negative (Negative); Salmonella spp. by PCR Negative (Negative); Shigella spp + EIEC by PCR Negative (Negative)
[2024-03-12] MEDS ORDERED: Pantoprazole 40 MG GRANULES PACKET PO SCH (09:00)
[2024-03-12] MEDS ORDERED: Baclofen 10 MG TAB PO PRN (09:00)
[2024-03-12] MEDS ORDERED: Pantoprazole 40 MG DR.TAB PO SCH (09:00)
[2024-03-12] MEDS: Oxybutynin 5 MG TAB PO SCH (10:24)
[2024-03-12] MEDS: Loratadine 10 MG TAB PO SCH (10:24)
[2024-03-12] MEDS: Pantoprazole 40 MG GRANULES PACKET PO SCH (10:24)
[2024-03-12] MEDS: FLUoxetine HCl 20 MG CAP PO SCH (10:24)
[2024-03-12] MEDS: Heparin 5,000 UNITS/ML VIAL SC SCH (10:24)
[2024-03-12] MEDS: Lisinopril 10 MG TAB PO SCH (10:24)
[2024-03-12] MEDS: Sodium Chloride 0.9% 1,000 ML IV SCH (15:35)
[2024-03-12] MEDS: LevoFLOXacin 500 mg/D5W 500 MG in Premix 1 BAG IVPB SCH (18:34)
[2024-03-12] MEDS: Amitriptyline HCl 10 MG TAB PO SCH (20:09)
[2024-03-13 06:54] LABS: Hematocrit 29.7 % (36.0-47.0); Hemoglobin 8.6 g/dL (12.0-16.0); Mean Corpuscular Hemoglobin 19.8 pg (27.0-31.0); Mean Corpuscular Volume 68.3 fL (78.0-98.0); Mean Platelet Volume 9.7 fL (7.4-10.4); Platelet Count 259 10x3/uL (130-400); RBC Distribution Width 17.6 % (11.5-14.5); Red Blood Cell (RBC) Count 4.35 mill/uL (4.20-5.40)
[2024-03-13 07:00] LABS: Anion Gap 9 mmol/L (10-20); BUN (Urea Nitrogen) 5 mg/dL (7.0-18.7); Calc. Creatinine Clearance 179 mL/min (70-130); Calcium 7.7 mg/dL (7.8-10.44); Carbon Dioxide 22 mmol/L (22-29); Chloride 109 mmol/L (98-107); Estimated GFR 114; Glucose 92 mg/dL (70-105); Potassium 3.1 mmol/L (3.5-5.1); Sodium 137 mmol/L (136-145)
[2024-03-13 07:29] LABS: Anisocytosis SLIGHT = 6-15 cells HPF (0-5); Band 1 % (5-11); Elliptocytes SLIGHT = 2-5 cells HPF (0-1); Eosinophils 3 % (0-10); Hypochromia SLIGHT = 6-15 cells HPF (0-5); Lymphocytes 42 % (21-51); Monocytes 6 % (0-10); Neutrophil 48 % (42-75); Platelet Adequacy Comment Platelets Normal; Polychromasia SLIGHT = 2-3 cells HPF (0-2); Smudge Cells 15.2 %; Stomatocytes SLIGHT = 2-5 cells HPF (0-1)
[2024-03-13] MEDS ORDERED: Electrolyte Replacement Protocol FS PRN (08:45)
[2024-03-13] MEDS ORDERED: Iopamidol-370 76% 500 ML MDV (1 ML CHARGE) ONE (09:24)
[2024-03-13] MEDS: Magnesium 2 GM/50 ML(in water) 2 GM in Premix 1 BAG IVPB SCH (10:58)
[2024-03-13] MEDS: Potassium Chloride 20 MEQ TAB PO SCH (10:58)
[2024-03-13 11:09] LABS: Magnesium 1.9 mg/dL (1.6-2.6)
[2024-03-13] MEDS: Electrolyte Replacement Protocol 1 EACH FS ONE (13:31)
[2024-03-13] MEDS: Sodium Ferric Gluconate 250 MG in Sodium Chloride 0.9% 250 ML 250 ML IVPB SCH (13:59)
[2024-03-13] MEDS: Dicyclomine 10 MG CAP PO SCH (14:00)
[2024-03-13 14:42] LABS: #Basophils Less than 0.03 10x3/uL (0.0-0.2); %Basophils 0.2 % (0.0-1.0); %Eosinophils 2.8 % (0.0-10.0); %Lymphocytes 30.2 % (21.0-51.0); %Neutrophils 58.6 % (42.0-75.0); Hemoglobin 8.9 g/dL (12.0-16.0); Mean Corpuscular HGB CONC 29.7 g/dL (32.0-36.0); Mean Corpuscular Hemoglobin 19.9 pg (27.0-31.0); Mean Platelet Volume 9.3 fL (7.4-10.4); Platelet Count 256 10x3/uL (130-400); RBC Distribution Width 17.6 % (11.5-14.5); Red Blood Cell (RBC) Count 4.48 mill/uL (4.20-5.40)
[2024-03-13 14:52] LABS: ALT (SGPT) 20 U/L (Less than 34); AST (SGOT) 23 U/L (11-34); Albumin 2.8 g/dL (3.1-4.5); Alkaline Phosphatase 81 U/L (40-110); Anion Gap 9 mmol/L (10-20); BUN (Urea Nitrogen) 4 mg/dL (7.0-18.7); Bilirubin, Total 0.3 mg/dL (0.3-1.2); Calc. Creatinine Clearance 179 mL/min (70-130); Calcium 7.8 mg/dL (7.8-10.44); Carbon Dioxide 23 mmol/L (22-29); Chloride 109 mmol/L (98-107); Estimated GFR 114; Globulin 3.5 g/dL (2.4-3.5); Glucose 98 mg/dL (70-105); Lipase 11 U/L (8-78); Potassium 3.7 mmol/L (3.5-5.1); Protein, Total 6.3 g/dL (6.0-8.3); Sodium 137 mmol/L (136-145)
[2024-03-13] MEDS: Lactated Ringer's 1,000 ML IV SCH (17:00)
[2024-03-13] MEDS: LevoFLOXacin 750 mg/D5W 750 MG in Premix 1 BAG IVPB SCH (20:46)
[2024-03-13] MEDS: Ondansetron ODT 4 MG TAB PO PRN (22:04)
[2024-03-14 05:53] LABS: Anion Gap 11 mmol/L (10-20); BUN (Urea Nitrogen) Less than 4 mg/dL (7.0-18.7); Calc. Creatinine Clearance 164 mL/min (70-130); Calcium 8.3 mg/dL (7.8-10.44); Carbon Dioxide 23 mmol/L (22-29); Chloride 108 mmol/L (98-107); Estimated GFR 112; Glucose 81 mg/dL (70-105); Potassium 3.6 mmol/L (3.5-5.1); Sodium 138 mmol/L (136-145)
[2024-03-14] MEDS: Pantoprazole 40 MG VIAL IVP SCH (09:36)
[2024-03-14 19:46] VITALS: BP 139/76; TEMP 97.6
== END 2024-03-14 20:09 | disposition home or self-care (01) | DRG 392 ==
LOC: ERS 15:29 → MSONC 20:47 → OBSVTOIN 03-13 08:16
PROVIDERS: ADMIT Student in an Organized Health Care Education/Training Program; ATTEND Internal Medicine
DX: A08.4 Viral intestinal infection, unspecified (principal); E87.1 Hypo-osmolality and hyponatremia; I10 Essential (primary) hypertension; G80.9 Cerebral palsy, unspecified; F32.A Depression, unspecified; D50.9 Iron deficiency anemia, unspecified; F17.210 Nicotine dependence, cigarettes, uncomplicated; F41.9 Anxiety disorder, unspecified; E87.6 Hypokalemia; E83.42 Hypomagnesemia; K21.9 Gastro-esophageal reflux disease without esophagitis; Z98.890 Other specified postprocedural states; Z99.3 Dependence on wheelchair; Z90.49 Acquired absence of other specified parts of digestive tract
CPT/HCPCS: 36415; 74177; 80048; 80053; 81001; 82271; 82274; 82728; 82805; 83540; 83550; 83605; 83630; 83690; 83735; 84145; 85025; 87324; 87428; 87449; 87505; 87507; 93005; 96372; 96375; G0378; J1644; J1956; J2405; J2470; J2550; J2916; J3411; J3475; J3490; J7030; J7050; J7120; Q0162; Q9967

== ENCOUNTER 2024-12-01 01:20 | Emergency (ER) | payer OTHER ==
[2024-12-01 11:10] LABS: #Basophils 0.02 10x3/uL (0.0-0.2); #Eosinophils 0.13 10x3/uL (0.0-0.7); #Monocytes 0.55 10x3/uL (0.11-0.59); #Neutrophils 5.30 10x3/uL (1.40-6.50); %Basophils 0.2 % (0.0-1.0); %Eosinophils 1.6 % (0.0-10.0); %Lymphocytes 25.3 % (21.0-51.0); %Monocytes 6.8 % (0.0-10.0); %Neutrophils 65.9 % (42.0-75.0); Hematocrit 36.1 % (36.0-47.0); Hemoglobin 11.1 g/dL (12.0-16.0); Mean Corpuscular Hemoglobin 22.0 pg (27.0-31.0); Mean Corpuscular Volume 71.6 fL (78.0-98.0); Platelet Count 296 10x3/uL (130-400); Red Blood Cell (RBC) Count 5.04 mill/uL (4.20-5.40); White Blood Cell (WBC) Count 8.06 10x3/uL (4.8-10.8)
[2024-12-01] MEDS ORDERED: Iopamidol-370 76% 500 ML MDV (1 ML CHARGE) ONE (11:57)
[2024-12-01 13:17] LABS: Anion Gap 11 mmol/L (10-20); BUN (Urea Nitrogen) 14 mg/dL (7.0-18.7); Calc. Creatinine Clearance 0 mL/min (70-130); Calcium 8.9 mg/dL (7.6-10.4); Carbon Dioxide 26 mmol/L (22-29); Chloride 110 mmol/L (98-107); Glucose 99 mg/dL (70-105); Potassium 3.5 mmol/L (3.5-5.1); Sodium 143 mmol/L (136-145)
[2024-12-01 13:18] LABS: ALT (SGPT) 19 U/L (Less than 34); AST (SGOT) 17 U/L (11-34); Albumin 3.7 g/dL (3.1-4.5); Alkaline Phosphatase 116 U/L (40-110); Bilirubin, Total 0.2 mg/dL (0.3-1.2); Globulin 3.6 g/dL (2.4-3.5); Lipase 27 U/L (8-78)
== END 2024-12-01 07:14 | disposition home or self-care (01) ==
LOC: ERS 01:20
DX: R10.9 Unspecified abdominal pain (principal); I10 Essential (primary) hypertension; F17.210 Nicotine dependence, cigarettes, uncomplicated
CPT/HCPCS: 74177; 80053; 83605; 83690; 85025; 99284; Q9967

== ENCOUNTER 2025-01-20 16:04 | Inpatient (IN) | payer OTHER, MEDICAID ==
[~2025-01-20 16:04] MED LIST: Iopamidol-370 76% 500 ML MDV (1 ML CHARGE) ONE
[2025-01-20] MEDS ORDERED: Lidocaine 1% PF 5 ML VIAL ONE (16:34)
[2025-01-20] MEDS ORDERED: cefTRIAXone (ROCEPHIN) 1 GM VIAL ONE (16:35)
[2025-01-20 18:24] LABS: #Basophils 0.04 10x3/uL (0.0-0.2); #Eosinophils Less than 0.03 10x3/uL (0.0-0.7); #Monocytes 1.01 10x3/uL (0.11-0.59); #Neutrophils 10.49 10x3/uL (1.40-6.50); %Basophils 0.3 % (0.0-1.0); %Eosinophils 0.1 % (0.0-10.0); %Lymphocytes 8.1 % (21.0-51.0); %Monocytes 8.0 % (0.0-10.0); %Neutrophils 83.3 % (42.0-75.0); Hematocrit 36.5 % (36.0-47.0); Hemoglobin 10.9 g/dL (12.0-16.0); Mean Corpuscular Hemoglobin 21.3 pg (27.0-31.0); Mean Corpuscular Volume 71.3 fL (78.0-98.0); Platelet Count 270 10x3/uL (130-400); Red Blood Cell (RBC) Count 5.12 mill/uL (4.20-5.40); White Blood Cell (WBC) Count 12.60 10x3/uL (4.8-10.8)
[2025-01-20 18:30] LABS: ALT (SGPT) 26 U/L (Less than 34); AST (SGOT) 29 U/L (11-34); Albumin 3.6 g/dL (3.1-4.5); Alkaline Phosphatase 121 U/L (40-110); Anion Gap 14 mmol/L (10-20); BUN (Urea Nitrogen) 6 mg/dL (7.0-18.7); Bilirubin, Total 0.7 mg/dL (0.3-1.2); Calc. Creatinine Clearance 0 mL/min (70-130); Calcium 8.8 mg/dL (7.8-10.44); Carbon Dioxide 21 mmol/L (22-29); Chloride 103 mmol/L (98-107); Globulin 3.9 g/dL (2.4-3.5); Glucose 103 mg/dL (70-105); Potassium 3.7 mmol/L (3.5-5.1); Sodium 134 mmol/L (136-145)
[2025-01-20] MEDS ORDERED: Vancomycin 1 GM/200 ML (FROZEN) BAG ONE (20:27)
[2025-01-20] MEDS ORDERED: Acetaminophen 325 MG TAB PO PRN (20:34)
[2025-01-20] MEDS ORDERED: HYDROmorphone 0.5 MG/0.5 ML SYRINGE ONE ×2 (20:37→20:40)
[2025-01-20] MEDS: Ondansetron PF 4 MG/2 ML Vial IVP PRN (22:48)
[2025-01-20] MEDS: Melatonin 3 MG TAB PO PRN (23:22)
[2025-01-20] MEDS: Ketorolac Tromethamine 30 MG (1 mL) VIAL IVP PRN (23:24)
[2025-01-21 00:57] VITALS: BMI 48.4
[2025-01-21 05:23] LABS: #Basophils Less than 0.03 10x3/uL (0.0-0.2); #Eosinophils 0.03 10x3/uL (0.0-0.7); #Monocytes 1.13 10x3/uL (0.11-0.59); #Neutrophils 7.39 10x3/uL (1.40-6.50); %Basophils 0.2 % (0.0-1.0); %Eosinophils 0.3 % (0.0-10.0); %Lymphocytes 12.0 % (21.0-51.0); %Monocytes 11.6 % (0.0-10.0); %Neutrophils 75.5 % (42.0-75.0); Hematocrit 32.7 % (36.0-47.0); Hemoglobin 10.0 g/dL (12.0-16.0); Mean Corpuscular Hemoglobin 21.8 pg (27.0-31.0); Mean Corpuscular Volume 71.4 fL (78.0-98.0); Platelet Count 242 10x3/uL (130-400); Red Blood Cell (RBC) Count 4.58 mill/uL (4.20-5.40); White Blood Cell (WBC) Count 9.78 10x3/uL (4.8-10.8)
[2025-01-21 05:30] LABS: Anion Gap 12 mmol/L (10-20); BUN (Urea Nitrogen) 7 mg/dL (7.0-18.7); Calc. Creatinine Clearance 175 mL/min (70-130); Calcium 8.4 mg/dL (7.8-10.44); Carbon Dioxide 23 mmol/L (22-29); Chloride 103 mmol/L (98-107); Glucose 116 mg/dL (70-105); Potassium 3.5 mmol/L (3.5-5.1); Sodium 134 mmol/L (136-145)
[2025-01-21] MEDS: HYDROcodone/Acetaminophen 7.5/325 mg Tablet PO PRN (08:31)
[2025-01-21 12:53] LABS: Glucose, Urine (Dipstick) Negative (Negative); Leukocyte Negative (Negative); Protein, Urine (Dipstick) Negative (Neg-Trace); Specific Gravity, Urine 1.015 (1.005-1.030)
[2025-01-21 12:58] LABS: CAUTI Indications for Culture Acute Hematuria; RBC/HPF 0-3 HPF (0-3); WBC/HPF 0-3 HPF (0-3)
[2025-01-21 12:59] LABS: Bacteria/HPF 1+ HPF (None Seen)
[2025-01-21 13:00] LABS: Urine Culture Reflex No No
[2025-01-21] MEDS: Ciprofloxacin 0.2% Otic (0.25ML CONTAINER) R EAR SCH (20:05)
[2025-01-21] MEDS: Calcium Carbonate 500 MG ChewTAB PO SCH (22:05)
[2025-01-22 05:57] LABS: #Basophils 0.03 10x3/uL (0.0-0.2); #Eosinophils 0.15 10x3/uL (0.0-0.7); #Monocytes 0.99 10x3/uL (0.11-0.59); #Neutrophils 6.44 10x3/uL (1.40-6.50); %Basophils 0.3 % (0.0-1.0); %Eosinophils 1.6 % (0.0-10.0); %Lymphocytes 16.5 % (21.0-51.0); %Monocytes 10.8 % (0.0-10.0); %Neutrophils 70.5 % (42.0-75.0); Hematocrit 33.3 % (36.0-47.0); Hemoglobin 9.9 g/dL (12.0-16.0); Mean Corpuscular Hemoglobin 21.5 pg (27.0-31.0); Mean Corpuscular Volume 72.4 fL (78.0-98.0); Platelet Count 221 10x3/uL (130-400); Red Blood Cell (RBC) Count 4.60 mill/uL (4.20-5.40); White Blood Cell (WBC) Count 9.15 10x3/uL (4.8-10.8)
[2025-01-22 06:11] LABS: Anion Gap 13 mmol/L (10-20); BUN (Urea Nitrogen) 4 mg/dL (7.0-18.7); Calc. Creatinine Clearance 190 mL/min (70-130); Calcium 8.5 mg/dL (7.8-10.44); Carbon Dioxide 24 mmol/L (22-29); Chloride 104 mmol/L (98-107); Glucose 101 mg/dL (70-105); Iron 19 ug/dL (50-170); Iron Binding Capacity, Total 285 mcg/dL (265-497); Potassium 3.7 mmol/L (3.5-5.1); Sodium 137 mmol/L (136-145)
[2025-01-22] MEDS: Lisinopril 20 MG TAB PO SCH (08:04)
[2025-01-22] MEDS: Pantoprazole 40 MG DR.TAB PO SCH (08:04)
[2025-01-23 00:04] VITALS: BP 134/69; TEMP 98.5
[2025-01-23] MEDS ORDERED: FLU (Fluarix Triv) 25-26 (6MOS UP)/PF 45 MCG/0.5 ML Syringe IM ONE (09:00)
== END 2025-01-23 01:00 | disposition short-term general hospital (02) | DRG 872 ==
LOC: ERS 16:04 → 2NO 20:45 → OBSVTOIN 20:45
PROVIDERS: ADMIT Student in an Organized Health Care Education/Training Program; ATTEND Internal Medicine
DX: A41.9 Sepsis, unspecified organism (principal); H70.91 Unspecified mastoiditis, right ear; R65.20 Severe sepsis without septic shock; K21.9 Gastro-esophageal reflux disease without esophagitis; I10 Essential (primary) hypertension; F41.9 Anxiety disorder, unspecified; F32.A Depression, unspecified; H66.92 Otitis media, unspecified, left ear; G47.00 Insomnia, unspecified; G80.9 Cerebral palsy, unspecified; H60.501 Unspecified acute noninfective otitis externa, right ear; B96.5 Pseudomonas (aeruginosa) (mallei) (pseudomallei) as the cause of diseases classified elsewhere; Z90.49 Acquired absence of other specified parts of digestive tract; D50.9 Iron deficiency anemia, unspecified; Z96.653 Presence of artificial knee joint, bilateral; Z99.3 Dependence on wheelchair; Z87.891 Personal history of nicotine dependence; Z88.5 Allergy status to narcotic agent; Z91.0110 Allergy to milk products, unspecified; Z79.899 Other long term (current) drug therapy; Z91.018 Allergy to other foods; Z87.19 Personal history of other diseases of the digestive system; Z98.890 Other specified postprocedural states; Z90.11 Acquired absence of right breast and nipple
CPT/HCPCS: 36415; 70496; 70498; 80048; 80053; 81001; 82728; 83540; 83550; 83605; 85025; 86141; 87040; 87070; 87077; 87186; 87205; 96365; 96372; 96375; 96376; G0378; J0295; J0696; J0878; J1171; J1885; J2405; J2543; J3010; J3373; J7120; Q9967